=== PATIENT | female | born 1955 | race Caucasian/White ===

== ENCOUNTER 2016-05-29 07:50 | Observation (INO) | payer OTHER ==
[~2016-05-29] VITALS: Ht 157.5 cm; Wt 72.0 kg
[2016-05-29] VITALS (7 sets, daily range): BP systolic 121–157; BP diastolic 59–95; PULSE 75–102; RESP 16–20; TEMP 98.1–98.6; O2SAT 96–99
[~2016-05-29 07:50] MED LIST: ASPI81 PO; CIPR500T2 PO; FEXO180 PO; GEMF600 PO; GLIP1TAB18 PO; METF-324 PO; METR-1 PO; PARO10S PO; PRIN5TAB PO; ZOCO40TA PO
[2016-05-29 08:23] LABS: AUTOMATED NEUTROPHIL # 4.6 TH/MM3 (1.8-7.7); BASOPHIL % 0.4 % (0.0-2.0); EOSINOPHIL # 2.1 TH/MM3 (0-0.4); EOSINOPHIL % 21.3 % (0.0-4.0); HEMATOCRIT 37.9 % (35.0-46.0); HEMO FLAGS DIFF FINAL; LYMPH % 26.6 % (9.0-44.0); LYMPHOCYTE # 2.6 TH/MM3 (1.0-4.8); MEAN CELL VOLUME 81.2 FL (80.0-100.0); MEAN CORPUSCULAR HGB CONC 33.3 % (32.0-36.0); NEUT % 46.7 % (16.0-70.0); PLATELET COUNT 240 TH/MM3 (150-450); RED BLOOD COUNT 4.67 MIL/MM3 (4.00-5.30); RED CELL DISTRIBUTION WIDTH 13.2 % (11.6-17.2); WHITE BLOOD COUNT 9.9 TH/MM3 (4.0-11.0)
[2016-05-29 08:38] LABS: APTT (PATIENT) 32.2 SEC (24.3-30.1); POTASSIUM 4.5 MEQ/L (3.5-5.1); PROTHROMBIN TIME - PATIENT 11.3 SEC (9.8-11.6)
--- NOTE | 2016-05-29 08:57 | RADRPT ---
EXAM DATE/TIME: 05/29/2016 08:15 [facility] COMPARISON: No previous studies available for comparison. INDICATIONS : Pain in middle of chest during the night, cold chills and sweats, syncope, no pain at this time MEDICAL HISTORY : Diabetes mellitus type II. SURGICAL HISTORY : None. ENCOUNTER: Initial ACUITY: 1 day PAIN SCORE: 0/10 LOCATION: Bilateral chest FINDINGS: A single view of the chest demonstrates the lungs to be symmetrically aerated without evidence of mas s, infiltrate or effusion. The cardiomediastinal contours are unremarkable. Osseous structures are intact. CONCLUSION: Normal examination. Kendrick Anglin Jr., MD on May 29, 2016 at 8:56 Board Certified Radiologist. This report was verified electronically.
[2016-05-29] MEDS ORDERED: SODIUM CHLORIDE 0.9% FLUSH 5 ML FLUSH IVF PRN (09:00)
--- NOTE | 2016-05-29 09:11 | PD ---
HPI Chief Complaint: Cardiac Complaint Time Seen by Provider: 08:55 Travel History International Travel<30 days: No Contact w/Intl Traveler<30days: No Traveled to known affect area: No History of Present Illness HPI 61-year-old female presents with 45 minute episode of chest pain when she went to go to the bathroom when she wasn't feeling good. She states she had a syncopal event during the episode. She states she doesn't think she hit her head and denies any other specific complaints. She denies any active chest pain. She denies prior cardiac workup. She has multiple cardiac risk factors including hypertension, diabetes, age, high cholesterol and paternal grandparents that with heart disease. Quality was pressure. Severity is resolved. She denies following with a hammer driver. She denies taking any aspirin yet today. She states this occurred at about 4:15 this morning then she went back to sleep but when she woke at 7 AM she decided she should get it checked out. PFSH Past Medical History Arthritis: Yes (HANDS ) Blood Disorders: No Anxiety: Yes Depression: Yes Cancer: No Cardiovascular Problems: Yes High Cholesterol: Yes Diabetes: Yes Endocrine: Yes Genitourinary: Yes Hypertension: Yes Immune Disorder: No Kidney Stones: Yes Musculoskeletal: Yes Neurologic: No Psychiatric: Yes Reproductive: Yes (HX. UTERINE FIBROIDS & OVARIAN CYSTS) Respiratory: Yes (ENVIRONMENTAL ALLERGIES) Past Surgical History Body Medical Devices: RIGHT ELBOW HARDWARE Gynecologic Surgery: Yes ( X 2; TUBAL LIGATION; D & C ) Social History Alcohol Use: No Tobacco Use: No Substance Use: No Allergies-Medications (Allergen,Severity, Reaction): Coded Allergies: Celexa (Verified Allergy, Severe, 05/29/16) Horse Serum Proteins (Verified Allergy, Severe, z, 05/29/16) Provera (Verified Allergy, Mild, 05/29/16) Tetracycline (Verified Allergy, Mild, 05/29/16) Zoloft (Verified Allergy, Mild, 05/29/16) Reported Meds & Prescriptions Reported Meds & Active Scripts Active Reported Lantus Inj (Insulin Glargine) 100 Unit/Ml Inj Gabapentin 300 Mg Cap 300 Mg PO TID Glipizide XL (Glipizide) 10 Mg Christopher 10 Mg PO DAILY Take with breakfast or first main meal of the day Zocor (Simvastatin) 20 Mg Tab 20 Mg PO DAILY Gemfibrozil 600 Mg Tab 600 Mg PO BIDAC Take 30 minutes prior to breakfast and dinner. Janumet (Sitagliptin-Metformin) 50-1,000 Mg Tab 1 Tab PO BID Aspirin Low Dose (Aspirin) 81 Mg Chew 81 Mg CHEW DAILY Ciprofloxacin Hcl 500 Mg Tab 500 Mg PO BID Flagyl (Metronidazole) 500 Mg Tab 500 Mg PO TID Glucotrol Xl (Glipizide) 5 Mg Tab 5 Mg PO DAILY Paxil (Paroxetine HCl) 10 Mg/5 Ml Marzena 20 Mg PO Aspirin 81 Mg Tab 81 Mg PO DAILY Lopid (Gemfibrozil) 600 Mg Tab 600 Mg PO BID Metformin ER 24 HR (Metformin HCl) 1,000 Mg Tab 1,000 Mg PO BID Prinivil (Lisinopril) 5 Mg Tab 5 Mg PO DAILY Monse (Fexofenadine HCl) 180 Mg Tab 180 Mg PO DAILY Zocor 40 mg (Simvastatin) 40 Mg Tab 40 Mg PO BID Review of Systems Except as stated in HPI: all other systems reviewed are Neg Physical Exam Narrative GENERAL: Well-nourished, well-developed patient. Well-appearing SKIN: Warm and dry. HEAD: Normocephalic and atraumatic. EYES: No injection or drainage. ENT: No nasal drainage noted. NECK: Supple, trachea midline. CARDIOVASCULAR: Regular rate and rhythm RESPIRATORY: Breath sounds equal bilaterally. No accessory muscle use. GASTROINTESTINAL: Abdomen soft, non-tender, nondistended. EXTREMITIES: No edema. BACK: Nontender without obvious deformity. NEUROLOGICAL: Awake and alert. Motor and sensory grossly within normal limits. Normal speech. Data Data Last Documented VS Vital Signs Date Time Temp Pulse Resp B/P Pulse Ox O2 Delivery O2 Flow Rate FiO2 05/29/16 09:18 97 05/29/16 07:53 98.4 91 16 136/79 Orders Electrocardiogram (05/29/16 07:58) Complete Blood Count With Diff (05/29/16 07:58) Basic Metabolic Panel (Bmp) (05/29/16 07:58) Ckmb (Isoenzyme) Profile (05/29/16 07:58) Troponin I (05/29/16 07:58) Chest, Single Ap (05/29/16 07:58) Iv Access Insert/Monitor (05/29/16 07:58) Ecg Monitoring (05/29/16 07:58) Oxygen Administration (05/29/16 07:58) Oximetry (05/29/16 07:58) Coag Profile (05/29/16 07:58) Magnesium (Mg) (05/29/16 08:56) Bilateral Bp Monitoring (05/29/16 08:56) Sodium Chloride 0.9% Flush (Ns Flush) (05/29/16 09:00) D-Dimer (05/29/16 09:05) Aspirin (Aspirin) (05/29/16 09:15) Ct Pulmonary Angiogram (05/29/16 09:52) Iohexol 350 Inj (Omnipaque 350 Inj) (05/29/16 11:30) Admit Order (Ed Use Only) (05/29/16 11:58) Place In Observation (05/29/16 12:03) Activity Bed Rest With Brp (05/29/16 12:03) Vital Signs (Adult) Q4H (05/29/16 12:03) Cardiac Rhythm .As Directed (05/29/16 12:03) ^ Notify Dr: Other .PRN (05/29/16 12:03) ^ Notify Dr. Parameters (05/29/16 12:03) Resp Oxygen Nasal Cannula (05/29/16 ) Ckmb (Isoenzyme) Profile (05/29/16 12:03) Ckmb (Isoenzyme) Profile (05/29/16 15:03) Troponin I (05/29/16 12:03) Troponin I (05/29/16 15:03) Electrocardiogram (05/29/16 12:03) Electrocardiogram (05/29/16 15:03) ^ Obtain (05/29/16 12:03) Sodium Chloride 0.9% Flush (Ns Flush) (05/29/16 21:00) Acetaminophen (Tylenol) (05/29/16 12:15) Ondansetron Inj (Zofran Inj) (05/29/16 12:15) Nitroglycerin Sl (Nitrostat Sl) (05/29/16 12:15) Aspirin (Aspirin) (05/30/16 09:00) Vte Prophylaxis Not Indicated (05/29/16 12:03) Labs Laboratory Tests Test 05/29/16 05/29/16 08:08 12:10 White Blood Count 9.9 TH/MM3 Red Blood Count 4.67 MIL/MM3 Hemoglobin 12.6 GM/DL Hematocrit 37.9 % Mean Corpuscular Volume 81.2 FL Mean Corpuscular Hemoglobin 27.0 PG Mean Corpuscular Hemoglobin 33.3 % Concent Red Cell Distribution Width 13.2 % Platelet Count 240 TH/MM3 Mean Platelet Volume 7.6 FL Neutrophils (%) (Auto) 46.7 % Lymphocytes (%) (Auto) 26.6 % Monocytes (%) (Auto) 5.0 % Eosinophils (%) (Auto) 21.3 % Basophils (%) (Auto) 0.4 % Neutrophils # (Auto) 4.6 TH/MM3 Lymphocytes # (Auto) 2.6 TH/MM3 Monocytes # (Auto) 0.5 TH/MM3 Eosinophils # (Auto) 2.1 TH/MM3 Basophils # (Auto) 0.0 TH/MM3 CBC Comment DIFF FINAL Differential Comment Prothrombin Time 11.3 SEC Prothromb Time International 1.0 RATIO Ratio Activated Partial 32.2 SEC Thromboplast Time D-Dimer Quantitative (PE/DVT) 1.23 MG/L FEU Sodium Level 138 MEQ/L Potassium Level 4.5 MEQ/L Chloride Level 107 MEQ/L Carbon Dioxide Level 21.0 MEQ/L Anion Gap 10 MEQ/L Blood Urea Nitrogen 25 MG/DL Creatinine 0.92 MG/DL Estimat Glomerular Filtration 62 ML/MIN Rate Random Glucose 176 MG/DL Calcium Level 9.5 MG/DL Magnesium Level 1.9 MG/DL Total Creatine Kinase 71 U/L 69 U/L Troponin I 0.02 NG/ML LESS THAN 0.02 NG/ML [facility] Medical Decision Making Medical Screen Exam Complete: Yes Emergency Medical Condition: Yes Medical Record Reviewed: Yes (past history confirmed) Interpretation(s) EKG shows NSR, no ST elevation or depression, and no arrhythmias. No significant T-wave inversions. CBC & BMP Diagram 05/29/16 08:08 Last 24 hours Impressions Chest X-Ray 05/29/16 8399 Signed Impressions: Service Date/Time: Sunday, May 29, 2016 08:15 - CONCLUSION: Normal examination. Kendrick Anglin Jr., MD Differential Diagnosis Angina, anemia, PE, vasovagal... Narrative Course Will add on magnesium and d-dimer and dose with aspirin and reevaluate ddimer elevated, will check ct ed workup no acute, agrees to cryogenics repairer observation Diagnosis Primary Impression: Chest pain Qualified Code: R07.9 - Chest pain, unspecified type Additional Impression: Syncope Qualified Code: R55 - Syncope, unspecified syncope type Admitting Information Admitting Physician Requests: Observation Laura Claire MD May 29, 2016 09:11
[2016-05-29] MEDS ORDERED: ASPIRIN 325 MG TAB PO ONE (09:15)
[2016-05-29] MEDS ORDERED: GLIP10TA67 PO (09:23)
[2016-05-29] MEDS ORDERED: ASPI81CH37 CHEW (09:23)
[2016-05-29] MEDS ORDERED: ZOCO20TA PO (09:23)
[2016-05-29] MEDS ORDERED: GABA300C5 PO (09:23)
[2016-05-29] MEDS ORDERED: LANTUS2P (09:23)
[2016-05-29] MEDS ORDERED: GEMF600T PO (09:23)
[2016-05-29] MEDS ORDERED: JANU50TA8 PO (09:23)
[2016-05-29] MEDS ORDERED: IOHEXOL 350 MG/ML 10 ML VIAL (for RAD DIAG) IV ONE (11:30)
--- NOTE | 2016-05-29 11:52 | RADRPT ---
EXAM DATE/TIME: 05/29/2016 11:05 [facility] COMPARISON: No previous studies available for comparison. INDICATIONS : Chest pains shortness of breath this morning. IV CONTRAST: 50 cc Omnipaque 350 (iohexol) IV RADIATION DOSE: 11.63 CTDIvol (mGy) MEDICAL HISTORY : Cardiovascular disease. Hypertension. Diabetes SURGICAL HISTORY : Tubal ligation. ENCOUNTER: Initial ACUITY: 1 day PAIN SCALE: 2/10 LOCATION: chest TECHNIQUE: Volumetric scanning of the chest was performed using a pulmonary embolism protocol MIP images were re constructed. Using automated exposure control and adjustment of the mA and/or kV according to patien t size, radiation dose was kept as low as reasonably achievable to obtain optimal diagnostic quality images. FINDINGS: PULMONARY ARTERIES: No filling defects are seen in the pulmonary arteries through the segmental level. LUNGS: There is no consolidation or pneumothorax . No concerning pulmonary nodule is visualized. PLEURAE: There is no pleural thickening or pleural effusion. MEDIASTINUM: There is good visualization of the great vessels of the middle mediastinum. No evidence of mediastin al or hilar adenopathy/mass. MUSCULOSKELETAL: Within normal limits for patient age. MISCELLANEOUS: The visualized upper abdominal organs demonstrate no acute abnormality. CONCLUSION: Normal examination. Misael Solis MD on May 29, 2016 at 11:42 Board Certified Radiologist. This report was verified electronically.
[2016-05-29] MEDS ORDERED: ONDANSETRON HCL 4 MG/2 ML VIAL IV PRN (12:15)
[2016-05-29] MEDS ORDERED: NITROGLYCERIN 0.4 MG SL 25 TABS/BTL SL PRN (12:15)
[2016-05-29] MEDS ORDERED: ACETAMINOPHEN 500 MG CPLT PO PRN (12:15)
[2016-05-29 13:03] LABS: CREATINE KINASE 69 U/L (26-192)
[2016-05-29] MEDS ORDERED: GLUCAGON 1 MG/ML VIAL OTHER PRN (14:45)
[2016-05-29] MEDS ORDERED: DEXTROSE 50% IN WATER 50 ML VIAL(D50) IV PUSH PRN (14:45)
--- NOTE | 2016-05-29 15:49 | HHI.HP ---
HPI Primary Care Physician Aiu-Dkuzb-nqqhlof care provider is in [place]. Chief Complaint Chest pain and syncopal episode History of Present Illness 61-year-old female with known diabetes, hypertension, and hyperlipidemia who woke approximately 4 AM with a "burning pain between my breast." She got up to use the restroom, felt dizzy and states she had a syncopal episode. Does not believe she hit her head. Does not believe she was "out " for very long as she was back in bed by 4:15. Severity 11/15. No radiation. Duration 45-60 minutes. Associated symptoms included clammy and diaphoretic with some mild shortness of breath and nausea. No vomiting. After syncopal episode, she had a bowel movement then returned to bed. She fell asleep and woke at 6:30 a.m. Decided she should have chest pressure and syncopal episode further investigated and came to ER. Denies previous chest pain or syncopal episodes. Currently chest pain-free. Review of Systems General: No fatigue,weakness, fever, chills, recent illness, or change in appetite. Recently traveled from [place] arrived on Saturday. HEENT: No MALDONDAO, no vision changes, no nasal congestion or drainage, no dysphasia CV: No current CP or pressure. No palpitations or intermittent leg pain. Dizziness has subsided. RESP: No SOB, cough, wheeze, or recent URI. GI: No nausea or vomiting. No bowel changes, diarrhea, constipation, pain, distention, melena, blood in the stool. No change in appetite, no unintentional weight gain or weight loss : No dysuria, urgency, frequency EXT: No lower leg edema, bilateral lower leg neuropathy MS: No discomfort or change in ROM NEURO: No change in memory, dizziness, difficulty with balance, LOC, motor/ sensory deficits PSYCH: History of depression, no longer takes anti-depression medication. States she is treated for anxiety and take Xanax rarely as needed. Past Family Social History Allergies: Coded Allergies: Celexa (Verified Allergy, Severe, 05/29/16) Horse Serum Proteins (Verified Allergy, Severe, z, 05/29/16) Provera (Verified Allergy, Mild, 05/29/16) Tetracycline (Verified Allergy, Mild, 05/29/16) Zoloft (Verified Allergy, Mild, 05/29/16) Past Medical History Diabetes, diverticulitis, depression, anxiety, hypertension, and hyperlipidemia. Past Surgical History 2 C-sections, elbow surgery, and a D&C in 2005. Reported Medications Reported Lantus Inj (Insulin Glargine) 80 Unit sq daily at bedtime Gabapentin 300 Mg Cap 300 Mg PO TIDoccasionally will take 4 times a day Glipizide XL (Glipizide) 10 Mg Christopher 10 Mg PO DAILY Take with breakfast or first main meal of the day Gemfibrozil 600 Mg Tab 600 Mg PO BIDAC Take 30 minutes prior to breakfast and dinner. Janumet (Sitagliptin-Metformin) 50-1,000 Mg Tab 1 Tab PO BID Aspirin 81 Mg Tab 81 Mg PO DAILY Lopid (Gemfibrozil) 600 Mg Tab 600 Mg PO BID Prinivil (Lisinopril) 5 Mg Tab 5 Mg PO DAILY Zocor 40 mg (Simvastatin) 40 Mg Tab 40 Mg PO BID Xanax (dose unknown) 3 times a day when necessary Active Ordered Medications Current Medications Medications (Trade) Dose Ordered Sig/Garima Route Start Time Stop Time Status Last Admin (Tylenol) 500 mg Q4H PRN PO 05/29/16 12:15 (Zofran Inj) 4 mg Q6H PRN IV 05/29/16 12:15 (Nitrostat Sl) 0.4 mg Q5M PRN SL 05/29/16 12:15 (Aspirin) 325 mg DAILY PO 05/30/16 09:00 (D50w (Vial) Inj) 25 ml UNSCH PRN IV PUSH 05/29/16 14:45 (Glucagon Inj) 1 mg UNSCH PRN OTHER 05/29/16 14:45 Family History Noncontributory for early onset cardiovascular disease Social History She is from [place]. Has a house in [facility] [place]. She is a lifelong nonsmoker. Denies any alcohol or illegal drug use. Has known hypertension, diabetes, and hyperlipidemia, States she is sedentary, however would be able to walk on treadmill if required. Past cardiac testing She has never had formal cardiac testing or cardiac catheterization. Has never required a anesthesiology medical doctor. Physical Exam Vital Signs Vital Signs Date Time Temp Pulse Resp B/P Pulse Ox O2 Delivery O2 Flow Rate FiO2 05/29/16 15:27 75 20 142/88 99 2/21/17 13:40 96 21 05/29/16 09:18 97 05/29/16 09:18 98 05/29/16 07:53 98.4 91 16 136/79 96 Physical Exam GENERAL: Alert WN, WD, NAD, pleasant, obese, female HEAD: NC, AT EYES: Sclera clear, conjunctiva without injection, pupils equal and round ENT: Mucous membranes pink and moist NECK: Supple, no masses, trachea midline CV: RRR, without murmur, rub, gallop, no JVD, S1-S2 no S3-S4. RESP: Clear lungs throughout bilateral, no crackles, wheeze, rhonchi, symmetrical chest rise, nonlabored, able to speak in full sentences ABD: Soft, NT, ND, no masses, positive bowel tones BACK: No CVAT, no scoliosis EXT: Pulses +24, no dependent edema MS: Normal tone 4 extremities, nontender, no obvious deformities, full range of motion NEURO: CN II through CN XII grossly intact, motor strength 5/5, gait WNL PSYCH: A+O 3, pleasant affect, appropriate speech, appropriate mood and affect , insight and judgment SKIN: Normal turgor, normal texture, no lesions, no rashes Laboratory Laboratory Tests Test 05/29/16 05/29/16 08:08 12:10 White Blood Count 9.9 Red Blood Count 4.67 Hemoglobin 12.6 Hematocrit 37.9 Mean Corpuscular Volume 81.2 Mean Corpuscular Hemoglobin 27.0 Mean Corpuscular Hemoglobin 33.3 Concent Red Cell Distribution Width 13.2 Platelet Count 240 Mean Platelet Volume 7.6 Neutrophils (%) (Auto) 46.7 Lymphocytes (%) (Auto) 26.6 Monocytes (%) (Auto) 5.0 Eosinophils (%) (Auto) 21.3 Basophils (%) (Auto) 0.4 Neutrophils # (Auto) 4.6 Lymphocytes # (Auto) 2.6 Monocytes # (Auto) 0.5 Eosinophils # (Auto) 2.1 Basophils # (Auto) 0.0 CBC Comment DIFF FINAL Differential Comment Prothrombin Time 11.3 Prothromb Time International 1.0 Ratio Activated Partial 32.2 Thromboplast Time D-Dimer Quantitative (PE/DVT) 1.23 Sodium Level 138 Potassium Level 4.5 Chloride Level 107 Carbon Dioxide Level 21.0 Anion Gap 10 Blood Urea Nitrogen 25 Creatinine 0.92 Estimat Glomerular Filtration 62 Rate Random Glucose 176 Calcium Level 9.5 Magnesium Level 1.9 Total Creatine Kinase 71 69 Troponin I 0.02 LESS THAN 0.02 Result Diagram: 05/29/16 0805/29/[address] Angiography 05/29/16 0952 Signed Impressions: Service Date/Time: Sunday, May 29, 2016 11:05 - CONCLUSION: Normal examination. Misael Solis MD Chest X-Ray 05/29/16 0758 Signed Impressions: Service Date/Time: Sunday, May 29, 2016 08:15 - CONCLUSION: Normal examination. Kendrick Anglin Jr., MD Course EKGs First EKG shows normal sinus rhythm with no ST or T-segment changes. Assessment and Plan Assessment and Plan #1 chest painadmitted to chest pain center. Will undergo 3 cardiac enzymes and EKGs. Will be seen and evaluated by Dr. Jayne Muñoz. Discussed with patient due to her risk factors she most likely will require further cardiac testing. She is agreeable to stress testing. #2 diabetesSSI and Accu-Cheks. Will hold oral anti-hyperglycemics at this time. #3 hypertensionreorder lisinopril and continue to monitor #4 dyslipidemiareorder simvastatin and gemfibrozil. #5 anxietypatient not requesting Xanax. Will continue to monitor. #6 syncope episode-upon further discussion patient has not been eating or drinking fluids. Encouraged her drink plenty of fluids and to eat small meals throughout the day. Follow up with puffer tender and discuss with them her diabetic medications. Return to ER for any further concerns and/or syncope episodes. Code Status Full code Mary Smith May 29, 2016 15:49
[2016-05-29] MEDS ORDERED: INSULIN ASPART SUPPLEMENTAL SCALE SQ SCH (16:00)
[2016-05-29 16:30] LABS: CREATINE KINASE 69 U/L (26-192)
--- NOTE | 2016-05-29 19:10 | HHI.DCPOC ---
Discharge Care Plan Diagnosis: (1) Atypical chest pain (2) Type 2 diabetes mellitus (3) Hypertension Goals to Promote Your Health * To prevent worsening of your condition and complications * To maintain your health at the optimal level Directions to Meet Your Goals Take your medications as prescribed Follow your dietary instruction Follow activity as directed Keep your appointments as scheduled Take your immunizations and boosters as scheduled If your symptoms worsen call your PCP, if no PCP go to Urgent Care Center or Emergency Room Smoking is Dangerous to Your Health. Avoid second hand smoke Call the 24-hour hour crisis hotline for domestic abuse at Mary Smith May 29, 2016 19:10
[2016-05-29] MEDS ORDERED: SODIUM CHLORIDE 0.9% FLUSH 5 ML FLUSH IVF SCH (21:00)
[2016-05-30] MEDS ORDERED: ASPIRIN 325 MG TAB PO SCH (09:00)
--- NOTE | 2016-05-30 15:56 | TR ---
Date Performed: 05/29/2016 Time Performed: 18:02:24 DOCTOR: Mike Conner DRUG LIST: CLINICAL HISTORY: REASON FOR TEST: Chest pain REASON FOR ENDING: OBSERVATION: CONCLUSION: Enoc protocol completed. Stopped sec to exceeding target heart rate and leg fatigue . Maximum KJ=564 Target HR Achieved=93.0% Maximum FS=772/68 Total Exercise Time=6:01. No reprod chest pain. No ectopy. No st t segment changes to sugg ischemia. Good exercie tolerance. Normal bp respons e. Recovery quickand unremarkable. COMMENTS: Patient exercised using the Enoc protocol. No electrocardiographic changes were seen to suggest ischemia. Hemodynamic response to exercise was normal. No significant arrhythmia was prese nt.
--- NOTE | 2016-05-30 22:26 | EKG ---
Date Performed: 05/29/2016 Time Performed: 15:11:03 PTAGE: 61 years EKG: Sinus rhythm NORMAL ECG PREVIOUS TRACING : 05/29/2016 12.15 Compared to prior tracing no significant change DOCTOR: Judah Figueroa Interpretating Date/Time 05/30/2016 22:26:28
--- NOTE | 2016-05-30 22:36 | EKG ---
Date Performed: 05/29/2016 Time Performed: 12:15:46 PTAGE: 61 years EKG: Sinus rhythm NORMAL ECG PREVIOUS TRACING : 05/29/2016 08.03 Compared to prior tracing no significant change DOCTOR: Judah Figueroa Interpretating Date/Time 05/30/2016 22:34:45
--- NOTE | 2016-05-30 22:47 | EKG ---
Date Performed: 05/29/2016 Time Performed: 08:03:35 PTAGE: 61 years EKG: Sinus rhythm LOW QRS VOLTAGE IN PRECORDIAL LEADS BORDERLINE ECG NO PREVIOUS TRACING DOCTOR: Judah Figueroa Interpretating Date/Time 05/31/2016 08:56:56
== END 2016-05-29 20:21 | disposition home or self-care (01) ==
LOC: NEPC 07:50 → NEDA 11:58 → UNDOADMOB 12:34 → NEDA 15:35 → NEPGCP 15:35 → UNDODISOB 20:21
PROVIDERS: ADMIT Internal Medicine Interventional Cardiology; ATTEND Internal Medicine Interventional Cardiology
DX: R55 Syncope and collapse (principal); R07.89 Other chest pain; E11.9 Type 2 diabetes mellitus without complications; I10 Essential (primary) hypertension; E78.00 Pure hypercholesterolemia, unspecified; E78.5 Hyperlipidemia, unspecified
CPT/HCPCS: 71010; 71275; 80048; 82550; 82948; 83735; 84484; 85025; 85379; 85610; 85730; 93005; 93017; 99285; G0378; Q9967